=== PATIENT | female | born 1990 | race Hispanic/Latino ===

== ENCOUNTER 2018-09-09 15:28 | Emergency (ER) | payer BC ==
[2018-09-09 17:02] LABS: Urine Blood 1+ (NEG); Urine Glucose NEGATIVE (NEG); Urine Protein NEGATIVE (NEG)
--- NOTE | 2018-09-09 17:37 | ER ---
Nurse's Notes [facility] Name: Alisson Barrera Age: 28 yrs Sex: Female : 1990 Arrival Date: 09/09/2018 Time: 15:32 Bed Treatment Private MD: Joshua Gamboa H Diagnosis: Rash and other nonspecific skin eruption Presentation: 09/09 15:40 Presenting complaint: Patient states: rash to left arm that began 2-3 days ago. Pt aa5 states "the rash comes and goes and I've gotten the rash on my back and my legs too but not right now". Transition of care: patient was not received from another setting of care. Onset of symptoms was August 2018. Risk Assessment: Do you want to hurt yourself or someone else? Patient reports no desire to harm self or others. Initial Sepsis Screen: Does the patient meet any 2 criteria? No. Patient's initial sepsis screen is negative. Does the patient have a suspected source of infection? No. Patient's initial sepsis screen is negative. Care prior to arrival: None. 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 - Social history:: Smoking status: Patient/guardian denies using tobacco. - Ebola Screening: : No symptoms or risks identified at this time. Screenin:04 Abuse screen: Denies threats or abuse. Denies injuries from another. Nutritional iw screening: No deficits noted. Tuberculosis screening: No symptoms or risk factors identified. Fall Risk None identified. Assessment: 16:03 General: Appears in no apparent distress. comfortable, Behavior is calm, cooperative. iw Pain: Denies pain. Neuro: Level of Consciousness is awake, alert, obeys commands, Oriented to person, place, time, situation, Moves all extremities. Full function. Cardiovascular: Capillary refill < 3 seconds in bilateral fingers Patient's skin is warm and dry. Respiratory: Respiratory effort is even, unlabored, Respiratory pattern is regular, symmetrical. Derm: Rash noted that is itchy, red, urticaria, on back and left arm. Musculoskeletal: Range of motion: intact in all extremities. Vital Signs: 15:42 BP 130 / 82; Pulse 95; Resp 18 S; Temp 98.9(O); Pulse Ox 99% on R/A; Weight 92.99 kg aa5 (R); Height 5 ft. 9 in. (175.26 cm) (R); Pain 0/10; 15:42 Body Mass Index 30.27 (92.99 kg, 175.26 cm) aa5 ED Course: 15:32 Patient arrived in ED. mr 15:32 Joshua Gamboa, is Private Physician. mr 15:40 Arm band placed on. aa5 15:41 Triage completed. aa5 15:55 Susu Davidson, SKYLER is Primary Nurse. iw 15:57 Nnamdi Ortiz NP is PHCP. pm1 15:57 Manjeet Lehman MD is Attending Physician. pm1 16:03 Patient has correct armband on for positive identification. Call light in reach. Pulse jl7 ox on. NIBP on. 16:04 No provider procedures requiring assistance completed. Patient did not have IV access iw during this emergency room visit. 16:57 Urine collected: clean catch specimen, cloudy. sg Administered Medications: No medications were administered Outcome: 17:37 Discharge ordered by MD. pm1 17:45 Discharged to home ambulatory, with family. jl7 17:45 Condition: good 17:45 Discharge instructions given to patient, family, Instructed on discharge instructions, follow up and referral plans. medication usage, safety practices, Demonstrated understanding of instructions, follow-up care, medications. 17:50 Patient left the ED. jl7 Signatures: Mohsen Torres RN SKYLER de león [place] mr Susu Davidson RN RN Kemi Turk RN RN [facility] Nnamdi Ortiz NP VISUALIZER pm1 Latasha Aguillon RN RN jl7
--- NOTE | 2018-09-09 17:37 | EDPHYS ---
Physician Documentation [facility] Name: Alisson Barrera Age: 28 yrs Sex: Female : 1990 Arrival Date: 09/09/2018 Time: 15:32 Bed Treatment Private MD: Joshua Gamboa H ED Physician Manjeet Lehman HPI: 09/09 17:30 This 28 yrs old Female presents to ER via Ambulatory with complaints of Rash. pm1 17:30 The patient's rash thought to be caused by an unknown cause. The rash is located on the pm1 left bicep. The rash can be described as urticarial. Onset: The symptoms/episode began/occurred today. Associated signs and symptoms: Pertinent negatives: burning sensation, difficulty breathing, fever, Pain swelling of lips, swelling of throat, swelling of tongue. Severity of symptoms: in the emergency department the symptoms have improved. Treatment given at home: Benadryl. The patient has not experienced similar symptoms in the past. 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 - Social history:: Smoking status: Patient/guardian denies using tobacco. - Ebola Screening: : No symptoms or risks identified at this time. ROS: 17:30 Constitutional: Negative for fever, chills, and weight loss, Eyes: Negative for injury, pm1 pain, redness, and discharge, ENT: Negative for injury, pain, and discharge, Neck: Negative for injury, pain, and swelling, Cardiovascular: Negative for chest pain, palpitations, and edema, Respiratory: Negative for shortness of breath, cough, wheezing, and pleuritic chest pain, Abdomen/GI: Negative for abdominal pain, nausea, vomiting, diarrhea, and constipation, Back: Negative for injury and pain, : Negative for injury, bleeding, discharge, and swelling, MS/Extremity: Negative for injury and deformity, Neuro: Negative for headache, weakness, numbness, tingling, and seizure. 17:30 Skin: Positive for rash, of the left bicep. Exam: 17:30 Constitutional: This is a well developed, well nourished patient who is awake, alert, pm1 and in no acute distress. Head/Face: Normocephalic, atraumatic. Eyes: Pupils equal round and reactive to light, extra-ocular motions intact. Lids and lashes normal. Conjunctiva and sclera are non-icteric and not injected. Cornea within normal limits. Periorbital areas with no swelling, redness, or edema. ENT: Nares patent. No nasal discharge, no septal abnormalities noted. Tympanic membranes are normal and external auditory canals are clear. Oropharynx with no redness, swelling, or masses, exudates, or evidence of obstruction, uvula midline. Mucous membranes moist. Neck: Trachea midline, no thyromegaly or masses palpated, and no cervical lymphadenopathy. Supple, full range of motion without nuchal rigidity, or vertebral point tenderness. No Meningismus. Chest/axilla: Normal chest wall appearance and motion. Nontender with no deformity. No lesions are appreciated. Cardiovascular: Regular rate and rhythm with a normal S1 and S2. No gallops, murmurs, or rubs. Normal PMI, no JVD. No pulse deficits. Respiratory: Lungs have equal breath sounds bilaterally, clear to auscultation and percussion. No rales, rhonchi or wheezes noted. No increased work of breathing, no retractions or nasal flaring. Abdomen/GI: Soft, non-tender, with normal bowel sounds. No distension or tympany. No guarding or rebound. No evidence of tenderness throughout. Back: No spinal tenderness. No costovertebral tenderness. Full range of motion. 17:30 MS/ Extremity: Pulses equal, no cyanosis. Neurovascular intact. Full, normal range of motion. 17:30 Skin: Appearance: normal except for affected area, consistent with urticaria. Vital Signs: 15:42 BP 130 / 82; Pulse 95; Resp 18 S; Temp 98.9(O); Pulse Ox 99% on R/A; Weight 92.99 kg aa5 (R); Height 5 ft. 9 in. (175.26 cm) (R); Pain 0/10; 15:42 Body Mass Index 30.27 (92.99 kg, 175.26 cm) aa5 MDM: 16:01 Patient medically screened. pm1 17:35 Data reviewed: vital signs. Data interpreted: Pulse oximetry: on room air is 99 %. pm1 Interpretation: normal. Counseling: I had a detailed discussion with the patient and/or guardian regarding: the historical points, exam findings, and any diagnostic results supporting the discharge/admit diagnosis, radiology results, the need for outpatient follow up, a family practitioner, a orthopedic surgeon, to return to the emergency department if symptoms worsen or persist or if there are any questions or concerns that arise at home. 09/09 16:58 Order name: Urine Dipstick--Ancillary (enter results); Complete Time: 17:37 bd 09/09 16:58 Order name: Urine --Ancillary (enter results); Complete Time: 17:37 bd 09/09 16:15 Order name: Urine Dipstick-Ancillary (obtain specimen); Complete Time: 16:57 pm1 09/09 16:15 Order name: Urine Test (obtain specimen); Complete Time: 16:57 pm1 Administered Medications: No medications were administered Disposition: 09/10 06:18 Co-signature as Attending Physician, Manjeet Lehman MD I agree with the assessment and javier plan of care. Disposition: 09/09/18 17:37 Discharged to Home. Impression: Rash and other nonspecific skin eruption. - Condition is Stable. - Discharge Instructions: Contact Dermatitis, Hives, Rash. - Medication Reconciliation Form, Thank You Letter form. - Follow up: Emergency Department; When: As needed; Reason: Worsening of condition. Follow up: Private Physician; When: 2 - 3 days; Reason: Recheck today's complaints, Continuance of care, Re-evaluation by your physician. - Problem is new. - Symptoms have improved. Signatures: Dispatcher [employer] Manjeet Mishra MD MD cha Calderon, Audri, RN RN aa5 Nnamdi Ortiz, SUPERVISOR MODERN LANGUAGES SUPERVISOR MODERN LANGUAGES pm1 Latasha Aguillon RN RN jl7 Corrections: (The following items were deleted from the chart) 09/09 17:50 17:37 09/09/2018 17:37 Discharged to Home. Impression: Rash and other nonspecific skin jl7 eruption. Condition is Stable. Forms are Medication Reconciliation Form, Thank You Letter, Antibiotic Education, Prescription Opioid Use. Follow up: Emergency Department; When: As needed; Reason: Worsening of condition. Follow up: Private Physician; When: 2 - 3 days; Reason: Recheck today's complaints, Continuance of care, Re-evaluation by your physician. Problem is new. Symptoms have improved. pm1
== END 2018-09-09 17:50 | disposition home or self-care (01) ==
LOC: ER 15:28
DX: R21 Rash and other nonspecific skin eruption (principal)
CPT/HCPCS: 81003; 81025; 99283

== ENCOUNTER 2018-10-21 20:17 | Emergency (ER) | payer BC ==
--- NOTE | 2018-10-21 22:14 | ER ---
Nurse's Notes [facility] Name: Alisson Barrera Age: 28 yrs Sex: Female : 1990 Arrival Date: 10/21/2018 Time: 20:20 Bed 15 Private MD: Joshua Gamboa H Diagnosis: state;Radiculopathy, cervical region Presentation: 10/21 20:32 Presenting complaint: Patient states: Reports soreness to right trapezius for 5 days. aj Patient reports soreness is worse with movement. Transition of care: patient was not received from another setting of care. Onset of symptoms was October 17, 2018. Risk Assessment: Do you want to hurt yourself or someone else? Patient reports no desire to harm self or others. Initial Sepsis Screen: Does the patient meet any 2 criteria? No. Patient's initial sepsis screen is negative. Does the patient have a suspected source of infection? No. Patient's initial sepsis screen is negative. Note Patient is 12 week . Care prior to arrival: None. 20:32 Method Of Arrival: Ambulatory 20:32 Acuity: PRABHJOT 4 aj Triage Assessment: 20:34 General: Appears in no apparent distress. comfortable, Behavior is calm, cooperative, aj appropriate for age. Pain: Complains of pain in right trapezius. Neuro: Level of Consciousness is awake, alert, obeys commands, Oriented to person, place, time, situation, Appropriate for age. Respiratory: Airway is patent Trachea midline Respiratory effort is even, unlabored, Respiratory pattern is regular, symmetrical. Derm: Skin is intact, is healthy with good turgor, Skin is pink, warm \T\ dry. normal. Musculoskeletal: Reports pain in right trapezius. 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 - Social history:: Smoking status: Patient/guardian denies using tobacco. - Ebola Screening: : Patient negative for fever greater than or equal to 101.5 degrees Fahrenheit, and additional compatible Ebola Virus Disease symptoms Patient denies exposure to infectious person Patient denies travel to an Ebola-affected area in the 21 days before illness onset No symptoms or risks identified at this time. Screenin:00 Abuse screen: Denies threats or abuse. Denies injuries from another. Nutritional cc3 screening: No deficits noted. Tuberculosis screening: No symptoms or risk factors identified. Fall Risk Ambulatory Aid- None/Bed Rest/Nurse Assist (0 pts). Gait- Normal/Bed Rest/Wheelchair (0 pts) Mental Status- Oriented to own ability (0 pts). Assessment: 21:00 General: see triage assessment. cc3 22:35 Reassessment: Patient appears in no apparent distress at this time. Patient and/or cc3 family updated on plan of care and expected duration. Pain level reassessed. Patient is alert, oriented x 3, equal unlabored respirations, skin warm/dry/pink. BRAYDEN Andre discharged the patient home, no prescription given. No IV cannula in situ. Patient left ER vitally stable and ambulatory with her . Vital Signs: 20:34 BP 130 / 81; Pulse 97; Resp 19; Temp 98.5; Pulse Ox 100% on R/A; Weight 93.89 kg; aj Height 5 ft. 9 in. (175.26 cm); 21:15 BP 128 / 87; Pulse 93; Resp 18 S; Pulse Ox 100% on R/A; cc3 22:20 BP 124 / 83; Pulse 95; Resp 17 S; Pulse Ox 99% on R/A; cc3 20:34 Body Mass Index 30.57 (93.89 kg, 175.26 cm) aj ED Course: 20:20 Patient arrived in ED. am2 20:21 Joshua Gamboa DO is Private Physician. am2 20:33 Triage completed. aj 20:36 Arm band placed on left wrist. Patient placed in waiting room, Patient notified of wait aj time. 21:00 Susan Carrera is Primary Nurse. cc3 21:00 Patient has correct armband on for positive identification. Bed in low position. Call cc3 light in reach. Side rails up X 1. Pulse ox on. NIBP on. 21:30 [facility]. snw 21:30 Ector Lopez MD is Attending Physician. snw 22:13 Joshua Gamboa DO is Referral Physician. snw 22:35 No provider procedures requiring assistance completed. Patient did not have IV access cc3 during this emergency room visit. Administered Medications: 22:25 Drug: morphine 4 mg Route: IM; Site: right gluteus; cc3 22:35 Follow up: Response: No adverse reaction; Pain is decreased cc3 Outcome: 22:13 Discharge ordered by MD. snw 22:35 Discharged to home ambulatory, with family. cc3 22:35 Condition: stable 22:35 Discharge instructions given to patient, family, Instructed on discharge instructions, follow up and referral plans. Demonstrated understanding of instructions, follow-up care. 22:40 Patient left the ED. cc3 Signatures: Claudia Marie RN RN Jes Middleton, HOTEL GUEST SERVICE AGENT-C HOTEL GUEST SERVICE AGENT-Csnw Claudia Parham Charlene cc3
--- NOTE | 2018-10-21 22:14 | EDPHYS ---
Physician Documentation [facility] Name: Alisson Barrera Age: 28 yrs Sex: Female : 1990 Arrival Date: 10/21/2018 Time: 20:20 Bed 15 Private MD: Joshua Gamboa H ED Physician Ector Lopez HPI: 10/21 22:25 This 28 yrs old Female presents to ER via Ambulatory with complaints of Neck snw Pain, <24hrs Old - rad to back of neck. 22:25 The patient or guardian complains of decreased range of motion, pain. The symptoms are snw located on the back and right trapezius. Onset: The symptoms/episode began/occurred 1 week(s) ago, and became persistent. Context: The problem was sustained at home, The neck injury/problem resulted from from unknown cause. Associated signs and symptoms: Pertinent negatives: chills, fever, numbness, weakness. The pain does not radiate. Modifying factors: The symptoms are alleviated by nothing. the symptoms are aggravated by movement. Severity of symptoms: At their worst the symptoms were moderate. It is unknown whether or not the patient has had similar symptoms in the past. 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 no fever, no trauma, no recent illness. 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 - Social history:: Smoking status: Patient/guardian denies using tobacco. - Ebola Screening: : Patient negative for fever greater than or equal to 101.5 degrees Fahrenheit, and additional compatible Ebola Virus Disease symptoms Patient denies exposure to infectious person Patient denies travel to an Ebola-affected area in the 21 days before illness onset No symptoms or risks identified at this time. ROS: 22:24 Constitutional: Negative for fever, chills, and weight loss, Eyes: Negative for injury, snw pain, redness, and discharge, ENT: Negative for injury, pain, and discharge, Cardiovascular: Negative for chest pain, palpitations, and edema, Respiratory: Negative for shortness of breath, cough, wheezing, and pleuritic chest pain, Abdomen/GI: Negative for abdominal pain, nausea, vomiting, diarrhea, and constipation, Back: Negative for injury and pain, : Negative for injury, bleeding, discharge, and swelling, MS/Extremity: Negative for injury and deformity, Skin: Negative for injury, rash, and discoloration, Neuro: Negative for headache, weakness, numbness, tingling, and seizure, Psych: Negative for depression, anxiety, suicide ideation, homicidal ideation, and hallucinations. 22:24 Neck: Positive for pain with movement, pain at rest, stiffness. Exam: 22:20 Constitutional: This is a well developed, well nourished patient who is awake, alert, snw and in no acute distress. Eyes: Pupils equal round and reactive to light, extra-ocular motions intact. Lids and lashes normal. Conjunctiva and sclera are non-icteric and not injected. Cornea within normal limits. Periorbital areas with no swelling, redness, or edema. ENT: Nares patent. No nasal discharge, no septal abnormalities noted. Tympanic membranes are normal and external auditory canals are clear. Oropharynx with no redness, swelling, or masses, exudates, or evidence of obstruction, uvula midline. Mucous membranes moist. Chest/axilla: Normal chest wall appearance and motion. Nontender with no deformity. No lesions are appreciated. Cardiovascular: Regular rate and rhythm with a normal S1 and S2. No gallops, murmurs, or rubs. Normal PMI, no JVD. No pulse deficits. Respiratory: Lungs have equal breath sounds bilaterally, clear to auscultation and percussion. No rales, rhonchi or wheezes noted. No increased work of breathing, no retractions or nasal flaring. Abdomen/GI: Soft, non-tender, with normal bowel sounds. No distension or tympany. No guarding or rebound. No evidence of tenderness throughout. Back: No spinal tenderness. No costovertebral tenderness. Full range of motion. Skin: Warm, dry with normal turgor. Normal color with no rashes, no lesions, and no evidence of cellulitis. MS/ Extremity: Pulses equal, no cyanosis. Neurovascular intact. Full, normal range of motion. Neuro: Awake and alert, GCS 15, oriented to person, place, time, and situation. Cranial nerves II-XII grossly intact. Motor strength 5/5 in all extremities. Sensory grossly intact. Cerebellar exam normal. Normal gait. 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 22:20 Neck: External neck: is normal, no cellulitis, no mass, no rash, no swelling, C-spine: appears grossly normal, Thyroid: appears normal, Trachea: is midline with no obvious abnormalities, ROM/movement: limited range of motion, that is mild, that is moderate, in any direction, pt resists movement 2nd to pain, wishes to remain stiff in hopes of improvement. Meningeal signs: are not present, nuchal rigidity, is not appreciated. Vital Signs: 20:34 BP 130 / 81; Pulse 97; Resp 19; Temp 98.5; Pulse Ox 100% on R/A; Weight 93.89 kg; aj Height 5 ft. 9 in. (175.26 cm); 21:15 BP 128 / 87; Pulse 93; Resp 18 S; Pulse Ox 100% on R/A; cc3 22:20 BP 124 / 83; Pulse 95; Resp 17 S; Pulse Ox 99% on R/A; cc3 20:34 Body Mass Index 30.57 (93.89 kg, 175.26 cm) aj MDM: 21:47 Patient medically screened. snw 22:24 Data reviewed: vital signs, nurses notes. Data interpreted: Pulse oximetry: on room air snw is 100 %. Interpretation: normal. Counseling: I had a detailed discussion with the patient and/or guardian regarding: the historical points, exam findings, and any diagnostic results supporting the discharge/admit diagnosis, the need for outpatient follow up, to return to the emergency department if symptoms worsen or persist or if there are any questions or concerns that arise at home. Special discussion: Based on the history and exam findings, there is no indication for further emergent testing or inpatient evaluation. I discussed with the patient/guardian the need to see the OB Gyne specialist for further evaluation of the symptoms. I discussed with the patient/guardian the need to see the primary care provider for further evaluation of the symptoms. Administered Medications: 22:25 Drug: morphine 4 mg Route: IM; Site: right gluteus; cc3 22:35 Follow up: Response: No adverse reaction; Pain is decreased cc3 Disposition: 10/22 19:09 Co-signature as Attending Physician, Ector Lopez MD I agree with the assessment and wa plan of care. Disposition: 10/21/18 22:13 Discharged to Home. Impression: state, Radiculopathy, cervical region. - Condition is Stable. - Discharge Instructions: Cervical Radiculopathy, Cervical Sprain, Cryotherapy, Heat Therapy, Radicular Pain. - Medication Reconciliation Form, Thank You Letter, Antibiotic Education, Prescription Opioid Use, Work release form form. - Follow up: Joshua Gamboa DO; When: 2 - 3 days; Reason: Recheck today's complaints, Continuance of care, Re-evaluation by your physician. Signatures: Claudia Marie RN RN aj Therrien, Shelly, EZEQUIEL-C ELECTROCARDIOGRAM TECHNICIAN-Csnw Ector Lopez MD MD wa Cordel, Charlene cc3 Corrections: (The following items were deleted from the chart) 10/21 22:40 22:13 10/21/2018 22:13 Discharged to Home. Impression: state; Radiculopathy, cc3 cervical region. Condition is Stable. Forms are Medication Reconciliation Form, Thank You Letter, Antibiotic Education, Prescription Opioid Use. Follow up: Joshua Gamboa; When: 2 - 3 days; Reason: Recheck today's complaints, Continuance of care, Re-evaluation by your physician. snw
[2018-10-21] MEDS ORDERED: MORPHINE 4 MG/ML SYR ONE (22:30)
== END 2018-10-21 22:40 | disposition home or self-care (01) ==
LOC: ER 20:17
DX: M54.12 Radiculopathy, cervical region (principal); Z3A.00 Weeks of gestation of pregnancy not specified
CPT/HCPCS: 96372; 99283

== ENCOUNTER 2019-05-12 15:01 | Inpatient (IN) | payer OTHER ==
[2019-05-12] MEDS ORDERED: PROMETHAZINE 25 MG/ML VIAL IV PRN (17:18)
[2019-05-12] MEDS ORDERED: Ringers Lactate 1,000 ML IV PRN (17:18)
[2019-05-12] MEDS ORDERED: BUTORPHANOL 1 MG/ML INJ IV PRN (17:18)
[2019-05-12] MEDS ORDERED: Ringers Lactate 1,000 ML IV SCH (18:00)
[2019-05-12 18:30] LABS: RPR Titer ND
[2019-05-12 18:33] LABS: Absolute Lymphocytes (CBC) 1.8 K/uL (0.7-4.9); Basophils % 0.5 % (0-1.3); Eosinophils % 0.9 % (0-4.4); Lymphocytes % 18.5 % (15.3-44.8); MPV 8.5 fL (7.6-11.3); Monocytes % 5.4 % (3.3-12.3)
[2019-05-12 18:48] VITALS: BMI 34.2
[2019-05-12 18:55] LABS: Urine Appearance CLEAR; Urine Bilirubin NEGATIVE (NEG); Urine Blood NEGATIVE (NEG); Urine Color YELLOW; Urine Glucose NEGATIVE (NEG); Urine Protein NEGATIVE (NEG); Urine Specific Gravity 1.015 (1.005-1.030); Urine Urobilinogen 0.2 mg/dL (0.2-1.0); Urine pH 6.5 (5.0-7.0)
[2019-05-12 19:16] LABS: Urine Bacteria <20 /HPF (<20); Urine Culture Reflex Order NOT NEEDED; Urine Mucus 1+ /HPF (NONE SEEN); Urine RBC <5 /HPF (NONE SEEN)
[2019-05-12] MEDS ORDERED: miSOPROStol 100 MCG TAB VAG SCH (21:00)
[2019-05-12] MEDS ORDERED: hydrOXYzine HCl 25 MG TAB PO ONE (21:00)
[2019-05-13] MEDS ORDERED: ROPIVACAINE HCL 100 ML IV PRN (06:50)
[2019-05-13] MEDS ORDERED: FENTANYL CITR 100 MCG/2 ML IV ONE (06:50)
[2019-05-13] MEDS ORDERED: ROPIVACAINE HCL 0.2% 20ML AMP IV ONE (06:51)
[2019-05-13] MEDS ORDERED: OXYTOCIN/LR 20 UNIT/1,000 ML BAG IV ONE (07:23)
[2019-05-13] MEDS ORDERED: OXYTOCIN/LR 20 UNIT/1,000 ML BAG IV SCH ×2 (08:00→18:00)
--- NOTE | 2019-05-13 08:45 | PREOPHP ---
Date of Admission: 05/12/2019 History: Ms. Barrera is a 28-year-old Polish female, 4, para 3-0-0-3, now at 41 plus weeks gestation. She is admitted for induction of labor secondary to prolonged . She has be en followed by me during this without significant complications other than anemia. Past Medical History: Please see record. Family History: Please see record. Review of Systems: She has no recent cough, cold, fever, or chills. No recent nausea or vomiting. She denies any breas t lumps or knots. She denies any bowel or bladder issues. Physical Examination: General: Reveals a pleasant, Polish female in no apparent distress. Neck: Supple without adenopathy or thyromegaly. Lungs: Clear. Cardiac: Regular rate and rhythm without murmurs. Breasts: Not examined. Abdomen: Nontender. Estimated weight is 7 plus pounds. Pelvic: Cervix fingertip long, vertex, -2. Extremities: No cyanosis, clubbing, or edema. Impression: 41 plus week . Plan: The patient will undergo misoprostol induction of labor. CARMITA/YESSENIA Voice ID: [id number]
[2019-05-13] MEDS ORDERED: METHYLERGONOVINE 0.2MG/ML AMP IM ONE (09:38)
[2019-05-13] MEDS ORDERED: CARBOPROST TROME 250 MCG/ML IM ONE (09:38)
[2019-05-13] MEDS ORDERED: LIDOCAINE 1% MPF 30 ML VIAL ONE (16:22)
[2019-05-13] MEDS ORDERED: ONDANSETRON 4 MG (ODT) TAB PO PRN (17:06)
[2019-05-13] MEDS ORDERED: METHYLERGONOVINE 0.2 MG TAB PO PRN (17:06)
[2019-05-13] MEDS ORDERED: CARBOPROST TROME 250 MCG/ML IM PRN (17:06)
[2019-05-13] MEDS ORDERED: IBUPROFEN 200 MG TAB PO PRN (17:06)
[2019-05-13] MEDS ORDERED: ACETAMINOPHEN 500 MG TAB PO PRN (17:06)
[2019-05-13] MEDS ORDERED: METHYLERGONOVINE 0.2MG/ML AMP IM PRN (17:06)
--- NOTE | 2019-05-13 17:09 | P.BOP ---
Preoperative diagnosis: 41wk Postoperative diagnosis: same Primary procedure: Low forcep delivery, viable male infant OP, CAN, meconium, variables Secondary procedure: repair first degree laceration Specimen: less than 300 Anesthesia: epidural Complications: None Transferred to: Other (273) Condition: Good
[2019-05-13 21:09] LABS: RPR (Rapid Plasma Reagin) NON-REACT (NON-REACT)
[2019-05-14 15:13] VITALS: BP 127/75; TEMP 97.8
--- NOTE | 2019-05-14 18:34 | DS ---
History Of Present Illness: Ms. Barrera is a 28-year-old [place] female, 4, para 3-0-0 -3, at 41+ weeks gestation. She was admitted in the evening for misoprostol induction of labor dali simpson to prolonged with a nonfavorable cervix. In the morning, she was noted to be 2+ cm af ter placement of epidural catheter and artificial rupture of membranes and Pitocin augmentation of la bor. She had a first stage of labor of approximately 8 hours, second stage of labor of 24 minutes. She was delivered by low forceps of a 7-pound 13-ounce male infant, 8 and 9. Cord was milked t oward the infant, clamped, cut, and placed in a warmer so it could be re-suctioned because of meconiu m staining of the amniotic fluid. She was delivered by forceps secondary to [id number] varia ble deceleration during second stage of labor. Cord blood was obtained. Placenta was spontaneously expelled and appeared to be intact. Intrauterine examination revealed no retained placental fragment s. A small first degree perineal laceration was noted, repaired with a obdadv-fy-tahip suture of 3-0 Vicryl. The patient had epidural catheter placed and received excellent benefit from this. Estim ed total blood loss was less than 300 cc. Final Hospital Discharge Diagnosis: 41+ week , delivered. Complications: None. Procedures: Misoprostol induction of labor, placement of epidural catheter, artificial rupture of me mbranes, Pitocin augmentation of labor, low forceps delivery of viable male , repair of first-d egree perineal laceration. Hospital Course: The patient is a 28-year-old, , [place] female, 4, para 3-0-0-3 at 41 + weeks gestation, who underwent misoprostol induction of labor because of a nonfavorable cervix. Chuy domínguez delivered a 7-pound 13-ounce male , 8 and 9, was dismissed on the first day, ambulatory, on a select diet with routine postvaginal delivery activity. Instructions to take ibupr ofen or Tylenol for pain relief. Lab work included on admission; hemoglobin and hematocrit of 11.8 a nd 36.0, dismissal hematocrit of 32.0. She is O positive blood type. Rubella immune. Will be seen back in my office in 1 week, was dismissed with the usual postvaginal delivery activity restrictions. Continue taking her iron and vitamins. CARMITA/YESSENIA Voice ID: [id number] Report ID: [id number]
[2019-05-15 20:23] LABS: HBsAG Nonreactive (Nonreactive)
== END 2019-05-14 18:30 | disposition home or self-care (01) | DRG 807 ==
LOC: 2ND-WC 17:34
PROVIDERS: ADMIT Specialist; ATTEND Specialist
PROC: 3E0P7VZ Introduction of Hormone into Female Reproductive, Via Natural or Artificial Opening (ICD-10-PCS; 2019-05-12)
PROC: 10D07Z3 Extraction of Products of Conception, Low Forceps, Via Natural or Artificial Opening (ICD-10-PCS; principal; 2019-05-13)
PROC: 0HQ9XZZ Repair Perineum Skin, External Approach (ICD-10-PCS; 2019-05-13)
DX: O48.1 Prolonged pregnancy (principal); Z37.0 Single live birth; O70.0 First degree perineal laceration during delivery; Z3A.41 41 weeks gestation of pregnancy; O64.0XX0 Obstructed labor due to incomplete rotation of fetal head, not applicable or unspecified; O77.0 Labor and delivery complicated by meconium in amniotic fluid; O76 Abnormality in fetal heart rate and rhythm complicating labor and delivery
CPT/HCPCS: 36415; 81001; 85014; 85025; 86592; 86850; 86900; 86901; 87340; J2210; J2590; J2795; J3010